=== PATIENT | female | born 1940 | race Two or more races ===

== ENCOUNTER 2018-05-11 19:39 | Inpatient (IN) | payer MEDICARE, BC ==
[~2018-05-11] VITALS: Ht 165.1 cm; Wt 60.8 kg
[2018-05-11] MEDS ORDERED: [UNRECOGNIZED DRUG - CODE] PO (19:57)
[2018-05-11] MEDS ORDERED: [UNRECOGNIZED DRUG - REMARK] (19:57)
[2018-05-11] MEDS ORDERED: MAG HYDROX/AL HYDROX/SIMETH 30 ML LIQUID UDC PO PRN (22:00)
[2018-05-11] MEDS ORDERED: MAGNESIUM HYDROXIDE 30 ML LIQUID UDC PO PRN (22:00)
[2018-05-11] MEDS ORDERED: LORAZEPAM 0.5 MG TABLET PO PRN (22:00)
[2018-05-11] MEDS ORDERED: ACETAMINOPHEN 325 MG TABLET PO PRN (22:00)
[2018-05-11 22:37] VITALS: BP 138/70
[2018-05-12 07:53] VITALS: BP 124/56
[2018-05-12 16:48] VITALS: BP 145/79
[2018-05-12] MEDS: TEMAZEPAM 7.5 MG CAPSULE PO PRN (20:48)
[2018-05-12 22:10] VITALS: BP 142/78
[2018-05-12] MEDS ORDERED: SULFAMETH/TRIMETH 800/160 MG TABLET PO ONE (22:15)
[2018-05-12] MEDS: MIRTAZAPINE 15 MG TABLET PO SCH (22:40)
[2018-05-13 07:02] LABS: BASOPHILS % (AUTO) 0.9 % (0.0-2.0); EOSINOPHILS % (AUTO) 0.8 % (0.0-7.0); HEMATOCRIT 35.2 % (31.2-41.9); HEMOGLOBIN 11.8 g/dL (10.9-14.3); LYMPHOCYTES # (AUTO) 2.9 K/uL (20.0-40.0); LYMPHOCYTES % (AUTO) 59.7 % (20.5-51.5); MEAN CORPUSCULAR HEMOGLOBIN 29.9 uug (24.7-32.8); MEAN CORPUSCULAR HGB CONC 34 g/dL (32.3-35.6); MEAN CORPUSCULAR VOLUME 89.2 fL (75.5-95.3); MONOCYTES # (AUTO) 0.4 K/uL (2.0-10.0); MONOCYTES % (AUTO) 8.4 % (0.0-11.0); NEUTROPHILS # (AUTO) 1.5 K/uL (1.8-8.9); NEUTROPHILS % (AUTO) 30.2 % (38.5-71.5); PLATELET COUNT (AUTO) 100 K/uL (179-408); RED BLOOD CELL COUNT(AUTO) 3.95 MIL/uL (3.63-4.92); WHITE BLOOD COUNT (AUTO) 4.9 K/uL (3.8-11.8)
[2018-05-13 07:25] LABS: THYROID STIMULATING HORMONE 1.964 mIU/mL (0.358-3.740)
[2018-05-13 07:50] LABS: ALANINE AMINOTRANSFERASE < 6 U/L (14-59); ALKALINE PHOSPHATASE 54 U/L (50-136); ASPARTATE AMINOTRANSFERASE 11 U/L (15-37); BILIRUBIN,TOTAL 0.6 mg/dL (0.2-1.0); CARBON DIOXIDE 28 mmol/L (21-32); CHLORIDE 107 mmol/L (98-107); CREATININE 1.3 mg/dL (0.6-1.3); GLUCOSE 75 mg/dL (74-106); MAGNESIUM 2.2 mg/dL (1.8-2.4); PHOSPHOROUS 2.7 mg/dL (2.5-4.9); POTASSIUM 3.5 mmol/L (3.5-5.1); TOTAL PROTEIN, SERUM 5.6 g/dL (6.4-8.2); UREA NITROGEN, BLOOD 21 mg/dL (7-18)
[2018-05-13 08:30] VITALS: BP 133/57
[2018-05-13] MEDS: SULFAMETH/TRIMETH 800/160 MG TABLET PO SCH ×2 (08:56→20:08)
[2018-05-13] MEDS ORDERED: IBRUTINIB 560 MG PO SCH (09:00)
[2018-05-13] MEDS ORDERED: IBRU140T PO (09:13)
[2018-05-13] MEDS: IMBRUVICA 140 MG PO SCH (09:33)
[2018-05-13 15:14] VITALS: BP 119/59
[2018-05-13 20:06] VITALS: BP 152/77
[2018-05-13] MEDS: MIRTAZAPINE 15 MG TABLET PO SCH (20:08)
[2018-05-13] MEDS: TEMAZEPAM 7.5 MG CAPSULE PO PRN (22:06)
[2018-05-14 07:30] VITALS: BP 120/65
[2018-05-14] MEDS: SULFAMETH/TRIMETH 800/160 MG TABLET PO SCH ×2 (08:15→20:09)
[2018-05-14] MEDS: IMBRUVICA 140 MG PO SCH (08:17)
[2018-05-14 15:26] VITALS: BP 147/69
[2018-05-14] MEDS: MIRTAZAPINE 15 MG TABLET PO SCH (20:09)
[2018-05-14] MEDS: TEMAZEPAM 7.5 MG CAPSULE PO PRN (21:45)
[2018-05-14 22:37] VITALS: BP 162/76
[2018-05-15 08:12] VITALS: BP 127/67
[2018-05-15] MEDS: IMBRUVICA 140 MG PO SCH (08:26)
[2018-05-15] MEDS: SULFAMETH/TRIMETH 800/160 MG TABLET PO SCH ×2 (08:26→20:04)
[2018-05-15 15:33] VITALS: BP 128/62
[2018-05-15] MEDS: MIRTAZAPINE 15 MG TABLET PO SCH (19:48)
[2018-05-15 20:00] VITALS: BP 146/73
[2018-05-15] MEDS: TEMAZEPAM 7.5 MG CAPSULE PO PRN (21:56)
[2018-05-16] MEDS: PANTOPRAZOLE SODIUM 40 MG TABLET.DR PO SCH ×2 (06:34→06:51)
[2018-05-16 07:30] VITALS: BP 167/79
[2018-05-16] MEDS: SULFAMETH/TRIMETH 800/160 MG TABLET PO SCH (08:21)
[2018-05-16] MEDS: IMBRUVICA 140 MG PO SCH (08:23)
[2018-05-16] MEDS ORDERED: OMEGA-3 FATTY ACIDS/FISH OIL CAPSULE PO SCH (09:00)
== END 2018-05-16 14:25 | disposition home or self-care (01) | DRG 885 ==
LOC: ER 19:41 → GPS 20:51
PROVIDERS: ADMIT Psychiatry & Neurology Psychosomatic Medicine; ATTEND Internal Medicine
DX: F32.2 Major depressive disorder, single episode, severe without psychotic features (principal); N17.0 Acute kidney failure with tubular necrosis; C91.10 Chronic lymphocytic leukemia of B-cell type not having achieved remission; N39.0 Urinary tract infection, site not specified; J90 Pleural effusion, not elsewhere classified; M80.08XA Age-related osteoporosis with current pathological fracture, vertebra(e), initial encounter for fracture; T40.2X2D Poisoning by other opioids, intentional self-harm, subsequent encounter; Z79.899 Other long term (current) drug therapy; Z88.1 Allergy status to other antibiotic agents; Z91.5 Personal history of self-harm; D69.6 Thrombocytopenia, unspecified; E78.5 Hyperlipidemia, unspecified; N20.0 Calculus of kidney; Z90.710 Acquired absence of both cervix and uterus; E77.8 Other disorders of glycoprotein metabolism; R03.0 Elevated blood-pressure reading, without diagnosis of hypertension; R16.1 Splenomegaly, not elsewhere classified
CPT/HCPCS: 36415; 83735; 84100; 84443; 85025; A4663

== ENCOUNTER 2022-03-12 18:39 | Inpatient (IN) | payer BC, MEDICARE ==
[~2022-03-12] VITALS: Ht 162.6 cm; Wt 49.0 kg
[~2022-03-12 18:39] MED LIST: IBRU140T PO; [UNRECOGNIZED DRUG - REMARK]
--- NOTE | 2022-03-12 19:30 | NUR ---
Recieved report from VALENCIA Mckeon.
--- NOTE | 2022-03-12 19:30 | NUR ---
Dr. Guthrie at bedside. MSE in progress.
[2022-03-12 20:11] LABS: *BILIRUBIN,URIN NEGATIVE (NEGATIVE); *CLARITY,URINE CLEAR (CLEAR); *COLOR,URINE YELLOW (YELLOW); *KETONES,URINE NEGATIVE (NEGATIVE); *UROBILINOGEN,URINE 0.2 E.U./dl (NORMAL); LEUKOCYTE ESTERASE ,URINE TRACE (NEGATIVE); NITRITE, URINE NEGATIVE (NEGATIVE); UGLUCOSE NEGATIVE (NEGATIVE)
[2022-03-12 20:15] LABS: *BLOOD, URINE TRACE (NEGATIVE)
--- NOTE | 2022-03-12 20:46 | NUR ---
Pt medically cleared by Dr. Guthrie.
--- NOTE | 2022-03-12 20:59 | NUR ---
Report given to VALENCIA Cole.
--- NOTE | 2022-03-12 21:37 | NUR ---
Pt. admitted to [facility], under care of Dr. Mckeon/Dr. Tyson Belongs List completed Kelsey RN aware of patient's arrival to unit.
--- NOTE | 2022-03-12 21:45 | NUR ---
Admission note: Patient is a 81 year old female , brought to [facility] by ambulance from [facility] on a 5150 for DTS. Per the hold, the patient verbalized suicidal ideation to her primary care physician by overdosing on pills. The patient stated " I have no , no house, no money. I am going to be homeless in 3 days". Upon face to face evaluation, this patient denied ever saying that she was suicidal. When the hold was read the patient denied and minimized the information that written. Her mood was angry and sarcastic. Plus the patient is forgetful and is a poor historian. She gets irritated easily , is impatient and acts initialed. The patients son was notified regarding her admission and currently he is living in his van. This patient has had a previous SA three years ago. The records show that the patient has Chronic Leukocytosis Leukemia , anemia, depression, CKD, and skin cancer. A Patients Rights Handbook and The Patient Advisement was provided. This ghost writer oriented the patient to the unit and the plan of care. Safety Stratiges are in place at this time.
[2022-03-12 22:07] VITALS: BP 93/51
[2022-03-12] MEDS ORDERED: MAG HYDROX/AL HYDROX/SIMETH 30 ML LIQUID UDC PO PRN (22:30)
[2022-03-12] MEDS ORDERED: BLOOD SUGAR DIAGNOSTIC 1 EACH STRIP VI ONE (22:30)
[2022-03-12] MEDS ORDERED: MAGNESIUM HYDROXIDE 30 ML LIQUID UDC PO PRN (22:30)
[2022-03-12 23:06] LABS: BACTERIA,URINE FEW /HPF (NONE SEEN); SQUAMOUS EPITHELIAL CELL,UR FEW /HPF (NONE SEEN)
[2022-03-12] MEDS: TEMAZEPAM 7.5 MG CAPSULE PO PRN (23:07)
[2022-03-12] MEDS: ACETAMINOPHEN 325 MG TABLET PO PRN (23:25)
[2022-03-13] MEDS: ACETAMINOPHEN 325 MG TABLET PO PRN ×2 (04:39→09:32)
[2022-03-13 07:55] VITALS: BP 101/45
[2022-03-13] MEDS: CEphaleXIN 500 MG CAPSULE PO SCH ×2 (14:35→22:09)
--- NOTE | 2022-03-13 15:02 | NUR ---
received patient in her room alert and oriented x3, patient compliant with medication c/o back pain Tylenol 650 mg given as ordered.patient is guarded flat effect ,denies any suicidal ideation .refused to attend in group activity .will continue close monitoring.
[2022-03-13 15:29] VITALS: BP 102/47
[2022-03-13 16:12] LABS: HEMATOCRIT 23.4 % (31.2-41.9); MEAN CORPUSCULAR HEMOGLOBIN 32.2 uug (24.7-32.8); MEAN CORPUSCULAR VOLUME 99.5 fL (75.5-95.3); PLATELET COUNT (AUTO) 59 K/uL (179-408)
[2022-03-13 16:24] LABS: ALANINE AMINOTRANSFERASE 13 U/L (14-59); ALKALINE PHOSPHATASE 50 U/L (50-136); ASPARTATE AMINOTRANSFERASE 16 U/L (15-37); BILIRUBIN,TOTAL 0.4 mg/dL (0.2-1.0); CARBON DIOXIDE 23 mmol/L (21-32); CHLORIDE 105 mmol/L (98-107); CREATININE 1.7 mg/dL (0.6-1.3); GLUCOSE 81 mg/dL (74-106); LACTATE DEHYDROGENASE 207 U/L (81-234); POTASSIUM 4.9 mmol/L (3.5-5.1); TOTAL PROTEIN, SERUM 5.7 g/dL (6.4-8.2); UREA NITROGEN, BLOOD 33 mg/dL (7-18)
--- NOTE | 2022-03-13 18:00 | NUR ---
Gps/Bank Representative- Received report from Marisela ANTONY RN..
[2022-03-13 18:29] LABS: LYMPHOCYTES % (MANUAL) 86 % (20-40); MONOCYTES % (MANUAL) 2 % (2-10); NEUTROPHILS % (MANUAL) 12 % (42-75)
--- NOTE | 2022-03-13 19:05 | NUR ---
Gps/Lobsterman- Received patient from ER via wheel chair, alert, oriented x 3, In no sign of any distress, complained of headache pain level 7/10. Requesting to take her to her room, refused to answer questions at this time.
[2022-03-13 19:51] VITALS: BP 101/50
[2022-03-13] MEDS: MIRTAZAPINE 15 MG TABLET PO SCH (20:33)
[2022-03-13] MEDS: TEMAZEPAM 7.5 MG CAPSULE PO PRN (20:38)
[2022-03-14] MEDS: CEphaleXIN 500 MG CAPSULE PO SCH (05:38)
[2022-03-14 08:04] LABS: ALKALINE PHOSPHATASE 54 U/L (50-136); BILIRUBIN,TOTAL 0.4 mg/dL (0.2-1.0); CARBON DIOXIDE 23 mmol/L (21-32); CHLORIDE 107 mmol/L (98-107); CREATINE KINASE, TOTAL 9 U/L (26-192); CREATININE 1.7 mg/dL (0.6-1.3); GLUCOSE 85 mg/dL (74-106); MAGNESIUM 2.2 mg/dL (1.8-2.4); PHOSPHOROUS 3.1 mg/dL (2.5-4.9); POTASSIUM 4.8 mmol/L (3.5-5.1); TOTAL PROTEIN, SERUM 5.3 g/dL (6.4-8.2); UREA NITROGEN, BLOOD 33 mg/dL (7-18)
[2022-03-14 08:10] LABS: IRON, SERUM 36 ug/dL (50-175); THYROID STIMULATING HORMONE 5.654 mIU/mL (0.358-3.740)
[2022-03-14 08:13] VITALS: BP 110/57
[2022-03-14 09:06] LABS: HEMATOCRIT 22.9 % (31.2-41.9); MEAN CORPUSCULAR HEMOGLOBIN 32.1 uug (24.7-32.8); MEAN CORPUSCULAR VOLUME 98.2 fL (75.5-95.3); PLATELET COUNT (AUTO) 59 K/uL (179-408)
[2022-03-14 09:13] LABS: ALANINE AMINOTRANSFERASE 12 U/L (14-59); ASPARTATE AMINOTRANSFERASE 13 U/L (15-37); FERRITIN 86 ng/mL (8-252)
--- NOTE | 2022-03-14 10:00 | NUR ---
Spoke with patient's son Olu Long @[phone] regarding primary oncology office for his mom , per Olu he dose not know.spoke with Lisa unable to obtain medical records.
[2022-03-14] MEDS: ACETAMINOPHEN 325 MG TABLET PO PRN (10:07)
--- NOTE | 2022-03-14 10:09 | NUR ---
WOUND CARE CONSULT: PT PRESENTS WITH LESION TO LEFT UPPER THIGH, PRESENT ON ADMISSION. WILL REQUEST SURGICAL CONSULT FROM DR MONK. RECOMMENDATIONS MADE FOR WOUND CARE/SKIN PROTECTION. DISCUSSED WITH NURSING STAFF. MD IN AGREEMENT WITH PLAN OF CARE.
[2022-03-14] MEDS: CEphaleXIN 250 MG CAPSULE PO SCH ×2 (14:19→21:30)
--- NOTE | 2022-03-14 15:27 | NUR ---
SW Initial Discharge Note: Pt was brought from [facility]. Pt's last [address] is listed as [address] Pt stated she is in between her motor home and facilities. Pt asked SW for help with placement. This SW spoke with pt's son, Olu [phone] who is agreeable for pt to discharge to a alf facility upon discharge. Olu stated he is the only family the pt has and he is available for emotional support. CARTER will continue to work with pt, family and MD to ensure a safe and proper discharge plan for the pt.
--- NOTE | 2022-03-14 15:28 | NUR ---
SW Family Contact: This SW spoke to pt's son, Olu ([phone]) who stated that he can be emotionally involved and provide certain items the pt may need brought to her. Olu stated pt is otherwise independent. Olu stated he is the only family the pt has. Olu is agreeable to a facility for the pt upon discharge.
--- NOTE | 2022-03-14 15:30 | NUR ---
Firearms Report: Director Of Dementia Operations completed and submitted a [employer] firearms report for 5150 a danger to self. A copy of report has been placed in patient chart.
[2022-03-14 15:58] VITALS: BP 112/52
[2022-03-14 19:32] VITALS: BP 112/52
[2022-03-14] MEDS: MIRTAZAPINE 15 MG TABLET PO SCH (20:33)
--- NOTE | 2022-03-14 21:00 | NUR ---
GPS: Received patient lying in her room. patient is alert and oriented x3, ambulates with steady gait. patient. patient is isolative guarded flat effect ,Denies any suicidal ideation at this time . assisted with adl's.will continue close monitoring.
[2022-03-14] MEDS: TEMAZEPAM 7.5 MG CAPSULE PO PRN (21:30)
[2022-03-15 03:55] LABS: LYMPHOCYTES % (MANUAL) 61 % (20-40); MONOCYTES % (MANUAL) 8 % (2-10); NEUTROPHILS % (MANUAL) 31 % (42-75)
[2022-03-15] MEDS: CEphaleXIN 250 MG CAPSULE PO SCH ×3 (05:54→21:38)
--- NOTE | 2022-03-15 06:17 | NUR ---
GPS: REMAIN CALM AND COOPERATIVE. SLEPT 7.30 HRS THROUGH THE NIGHT AFTER RESTORIL GIVEN. NO AGITATION NOTED AT THIS TIME. RESTING IN BED COMFORTABLY. CONTINUE PLAN OF CARE.
[2022-03-15 07:34] VITALS: BP 109/53
[2022-03-15 08:21] LABS: HEMATOCRIT 22.9 % (31.2-41.9); MEAN CORPUSCULAR HEMOGLOBIN 32.2 uug (24.7-32.8); MEAN CORPUSCULAR VOLUME 97.9 fL (75.5-95.3); PLATELET COUNT (AUTO) 61 K/uL (179-408)
[2022-03-15 08:27] LABS: CARBON DIOXIDE 25 mmol/L (21-32); CHLORIDE 107 mmol/L (98-107); CREATININE 1.8 mg/dL (0.6-1.3); GLUCOSE 86 mg/dL (74-106); POTASSIUM 4.8 mmol/L (3.5-5.1); UREA NITROGEN, BLOOD 33 mg/dL (7-18)
[2022-03-15 10:43] LABS: *RHEUMATOID FACTOR SCREEN NEGATIVE (NEGATIVE)
[2022-03-15 11:22] LABS: BAND % (MANUAL) 1 % (0-10); LYMPHOCYTES % (MANUAL) 77 % (20-40); MONOCYTES % (MANUAL) 7 % (2-10); NEUTROPHILS % (MANUAL) 15 % (42-75)
[2022-03-15 12:07] LABS: A/G RATIO 1.3 (0.7-1.7); ALPHA-1-GLOBULIN 0.2 g/dL (0.0-0.4); ALPHA-2-GLOBULIN 0.7 g/dL (0.4-1.0); BETA GLOBULIN 0.9 g/dL (0.7-1.3); GAMMA GLOBULIN 0.5 g/dL (0.4-1.8); GLOBULIN, TOTAL 2.3 g/dL (2.2-3.9); M-SPIKE Not Observed g/dL (Not Observed)
[2022-03-15] MEDS: ACETAMINOPHEN 325 MG TABLET PO PRN (13:42)
--- NOTE | 2022-03-15 14:00 | NUR ---
Received patient sleeping in her room. Patient is A/O X 3 to person, place. Patient is withdrawn, isolative, depressed, cooperative with nursing care, and compliant with medications. Tylenol 650 mg given at 13:42 for headache, effective. Patient presents left thigh scabbed wound and left big toe bruise. Patient has history of skin cancer. Patient primary oncology doctor is Dr. Landin at [facility]. Patient cancer medication Ibrutinib was left in [facility] in [facility]. This designer writer will try to contact the facility to send her medication, since this hospital does not carry it. Patient requires minimal assistance with ADL. Emotional support provided. Fall and safety precautions implemented.
--- NOTE | 2022-03-15 16:19 | NUR ---
This typewriter assembler called patient primary oncology Dr. Daniel Corbni MD, B[facility] office from [facility] at [phone] to request medical records on this patient. This typewriter assembler talked to Lisa, secretary specialist from his office, and she will send a fax to this unit on Dr. Mike burnham in the next two days.
[2022-03-15 16:31] VITALS: BP 109/48
[2022-03-15 19:46] VITALS: BP 101/50
[2022-03-15] MEDS: MIRTAZAPINE 15 MG TABLET PO SCH (20:13)
[2022-03-15 20:24] LABS: BILIRUBIN,DIRECT 0.1 mg/dL (0.0-0.2); BILIRUBIN,TOTAL 0.3 mg/dL (0.2-1.0); TOTAL PROTEIN, SERUM 5.6 g/dL (6.4-8.2)
--- NOTE | 2022-03-15 20:33 | NUR ---
GPS: Received patient lying in her room. patient is alert and oriented x3, ambulates with steady gait. patient is quiet and isolative. Denies any suicidal ideation at this time . compliant with meds. encourage po intake due to patient is atb for uti. assisted with adl's.will continue close monitoring.
[2022-03-15] MEDS: TEMAZEPAM 7.5 MG CAPSULE PO PRN (21:38)
[2022-03-16] MEDS: CEphaleXIN 250 MG CAPSULE PO SCH ×3 (05:57→21:07)
--- NOTE | 2022-03-16 06:08 | NUR ---
GPS: REMAIN CALM AND COOPERATIVE. SLEPT 6 HRS THROUGH THE NIGHT AFTER RESTORIL GIVEN. NO AGITATION NOTED AT THIS TIME. RESTING IN BED COMFORTABLY. CONTINUE PLAN OF CARE.
[2022-03-16 07:37] LABS: HEMATOCRIT 22.1 % (31.2-41.9); MEAN CORPUSCULAR HEMOGLOBIN 32.2 uug (24.7-32.8); MEAN CORPUSCULAR VOLUME 98.2 fL (75.5-95.3); PLATELET COUNT (AUTO) 61 K/uL (179-408)
[2022-03-16 07:42] VITALS: BP 119/46
[2022-03-16 07:44] LABS: CARBON DIOXIDE 26 mmol/L (21-32); CHLORIDE 107 mmol/L (98-107); CREATININE 1.8 mg/dL (0.6-1.3); GLUCOSE 88 mg/dL (74-106); POTASSIUM 4.9 mmol/L (3.5-5.1); UREA NITROGEN, BLOOD 33 mg/dL (7-18)
--- NOTE | 2022-03-16 08:29 | NUR ---
Patient hemoglobin is 7.2, Elevator Constructor was informed.
[2022-03-16] MEDS: ACETAMINOPHEN 325 MG TABLET PO PRN (08:36)
[2022-03-16 09:07] LABS: *IMMUNOGLOBULIN G, SERUM 376 mg/dL (586-1602); IMMUNOGLOBULIN M, SERUM 20 mg/dL (26-217)
[2022-03-16 12:07] LABS: *ANTI-SCLERODERMA-70 AB <0.2 AI (0.0-0.9); *SJOGREN'S ANTI-SS-A <0.2 AI (0.0-0.9); *SJOGREN'S ANTI-SS-B <0.2 AI (0.0-0.9); *SMITH ANTIBODIES <0.2 AI (0.0-0.9); ANTI-DNA(DS) AB, QN <1 IU/mL (0-9)
[2022-03-16] MEDS: FERROUS SULFATE 325 MG TABEC PO SCH ×2 (13:05→20:18)
[2022-03-16 13:59] LABS: MONOCYTES % (MANUAL) 6 % (2-10)
[2022-03-16 14:00] LABS: LYMPHOCYTES % (MANUAL) 75 % (20-40); NEUTROPHILS % (MANUAL) 19 % (42-75)
--- NOTE | 2022-03-16 15:03 | NUR ---
Patient is depressed, withdrawn, isolative, compliant with medications, low energy, not engaged in conversations or activities. A/O X 3 to person, place. Patient is encourage to verbalize concerns. Fall and safety precautions implemented.
[2022-03-16 16:00] VITALS: BP 113/53
[2022-03-16 20:08] VITALS: BP 109/58
[2022-03-16] MEDS: MIRTAZAPINE 15 MG TABLET PO SCH (20:19)
[2022-03-16] MEDS: TEMAZEPAM 7.5 MG CAPSULE PO PRN (21:23)
[2022-03-17 03:06] LABS: HEPATITIS B SURFACE AG Negative (Negative)
[2022-03-17] MEDS: CEphaleXIN 250 MG CAPSULE PO SCH ×3 (06:17→21:23)
[2022-03-17 07:30] VITALS: BP 104/54
[2022-03-17] MEDS: FERROUS SULFATE 325 MG TABEC PO SCH ×2 (08:08→20:06)
[2022-03-17] MEDS: ACETAMINOPHEN 325 MG TABLET PO PRN (08:08)
[2022-03-17 08:27] LABS: PLATELET COUNT (AUTO) 61 K/uL (179-408)
[2022-03-17 08:29] LABS: MEAN CORPUSCULAR HEMOGLOBIN 32.9 uug (24.7-32.8)
[2022-03-17 09:14] LABS: CARBON DIOXIDE 26 mmol/L (21-32); CHLORIDE 107 mmol/L (98-107); CREATININE 1.9 mg/dL (0.6-1.3); GLUCOSE 86 mg/dL (74-106); POTASSIUM 4.7 mmol/L (3.5-5.1); UREA NITROGEN, BLOOD 36 mg/dL (7-18)
[2022-03-17 10:07] LABS: A/G RATIO 1.3 (0.7-1.7); ALPHA-1-GLOBULIN 0.3 g/dL (0.0-0.4); ALPHA-2-GLOBULIN 0.7 g/dL (0.4-1.0); BETA GLOBULIN 0.9 g/dL (0.7-1.3); GAMMA GLOBULIN 0.5 g/dL (0.4-1.8); GLOBULIN, TOTAL 2.4 g/dL (2.2-3.9); M-SPIKE Not Observed g/dL (Not Observed)
--- NOTE | 2022-03-17 14:13 | NUR ---
Patient had court hearing today, administration intern gave 14 Day hold probable cause for GD and DTS.
--- NOTE | 2022-03-17 14:49 | NUR ---
Received patient sleeping in her room. Patient is A/O X 3 to person, place. Patient is quiet, withdrawn, isolative, compliant with medications. Patient denies suicidal ideations. Patient hemoglobin increased from 7.12 yesterday to 7.15 this morning, Tool Maker Bench aware of it. Patient primary oncologist progress notes in the chart. Patient has multiple bruises on her upper and lower extremities including her face because of skin cancer. Requires minimal assistance with ADL. Emotional support provided. Fall and safety precautions implemented.
[2022-03-17 16:00] VITALS: BP 106/51
[2022-03-17] MEDS: MIRTAZAPINE 15 MG TABLET PO SCH (20:06)
[2022-03-17 20:07] VITALS: BP 126/54
[2022-03-17] MEDS: TEMAZEPAM 7.5 MG CAPSULE PO PRN (21:23)
[2022-03-18] MEDS: CEphaleXIN 250 MG CAPSULE PO SCH ×3 (06:40→21:17)
[2022-03-18 07:30] VITALS: BP 107/51
[2022-03-18 08:02] LABS: ALANINE AMINOTRANSFERASE 10 U/L (14-59); ALKALINE PHOSPHATASE 62 U/L (50-136); ASPARTATE AMINOTRANSFERASE 21 U/L (15-37); BILIRUBIN,TOTAL 0.4 mg/dL (0.2-1.0); CARBON DIOXIDE 25 mmol/L (21-32); CHLORIDE 107 mmol/L (98-107); GLUCOSE 89 mg/dL (74-106); MAGNESIUM 2.2 mg/dL (1.8-2.4); PHOSPHOROUS 3.4 mg/dL (2.5-4.9); POTASSIUM 4.6 mmol/L (3.5-5.1); TOTAL PROTEIN, SERUM 5.6 g/dL (6.4-8.2); UREA NITROGEN, BLOOD 33 mg/dL (7-18)
[2022-03-18 08:13] LABS: HEMATOCRIT 22.1 % (31.2-41.9); MEAN CORPUSCULAR HEMOGLOBIN 32.9 uug (24.7-32.8); MEAN CORPUSCULAR VOLUME 96.8 fL (75.5-95.3); PLATELET COUNT (AUTO) 60 K/uL (179-408)
[2022-03-18] MEDS: FERROUS SULFATE 325 MG TABEC PO SCH ×2 (08:33→20:06)
[2022-03-18] MEDS: ENSURE ENLIVE (VAN) 240 ML LIQUID PO SCH ×2 (11:45→17:39)
--- NOTE | 2022-03-18 14:13 | NUR ---
attempted to call patient's son Olu @[phone] to bring her Chemo med.Ibrutinib from her A/L facility , unable to contact Olu,will endorse next shift.
[2022-03-18 16:00] VITALS: BP 116/57
[2022-03-18 19:41] VITALS: BP 115/53
[2022-03-18] MEDS: MIRTAZAPINE 15 MG TABLET PO SCH (20:06)
--- NOTE | 2022-03-18 20:35 | NUR ---
GPS: Remains withdrawn and isolative. Denies SI. Encouraged to attend activities during the day. Safe environment provided. Fluids taken adequately.
[2022-03-18] MEDS: TEMAZEPAM 7.5 MG CAPSULE PO PRN (21:17)
[2022-03-18 22:56] LABS: EOSINOPHILS % (MANUAL) 2 % (0-8); LYMPHOCYTES % (MANUAL) 76 % (20-40); MONOCYTES % (MANUAL) 7 % (2-10); NEUTROPHILS % (MANUAL) 15 % (42-75)
[2022-03-19] MEDS: CEphaleXIN 250 MG CAPSULE PO SCH (06:19)
[2022-03-19 07:42] VITALS: BP 121/62
[2022-03-19 08:30] LABS: HEMATOCRIT 23.2 % (31.2-41.9); MEAN CORPUSCULAR HEMOGLOBIN 31.3 uug (24.7-32.8); MEAN CORPUSCULAR VOLUME 97.3 fL (75.5-95.3); PLATELET COUNT (AUTO) 65 K/uL (179-408)
[2022-03-19 08:44] LABS: ALANINE AMINOTRANSFERASE 10 U/L (14-59); ALKALINE PHOSPHATASE 66 U/L (50-136); ASPARTATE AMINOTRANSFERASE 19 U/L (15-37); BILIRUBIN,TOTAL 0.3 mg/dL (0.2-1.0); CARBON DIOXIDE 25 mmol/L (21-32); CHLORIDE 108 mmol/L (98-107); CREATININE 1.9 mg/dL (0.6-1.3); GLUCOSE 90 mg/dL (74-106); MAGNESIUM 2.4 mg/dL (1.8-2.4); PHOSPHOROUS 3.6 mg/dL (2.5-4.9); POTASSIUM 4.8 mmol/L (3.5-5.1); TOTAL PROTEIN, SERUM 5.6 g/dL (6.4-8.2); UREA NITROGEN, BLOOD 40 mg/dL (7-18)
[2022-03-19] MEDS: FERROUS SULFATE 325 MG TABEC PO SCH ×2 (08:57→20:25)
[2022-03-19] MEDS: ENSURE ENLIVE (VAN) 240 ML LIQUID PO SCH (08:59)
--- NOTE | 2022-03-19 15:44 | NUR ---
GPS: Nursing Notes: Destructive Behavior To Self: Patient is awake and responding to her name, isolative and withdrawn in her room, no interactions with peers, low energy level, depressed mood and blunted affect, unable to formulate a viable plan for self care, needs a lot of prompting to participate in therapeutic groups, continue to monitor for safety, continue with treatment plan.
[2022-03-19 16:16] VITALS: BP 99/47
[2022-03-19 19:53] VITALS: BP 112/54
[2022-03-19] MEDS: MIRTAZAPINE 15 MG TABLET PO SCH (20:25)
[2022-03-19] MEDS: TEMAZEPAM 7.5 MG CAPSULE PO PRN (23:39)
[2022-03-20 07:50] VITALS: BP 103/52
[2022-03-20] MEDS: FERROUS SULFATE 325 MG TABEC PO SCH ×2 (08:50→20:32)
--- NOTE | 2022-03-20 13:36 | NUR ---
GPS: Nursing Notes: Destructive Behavior To Self: Patient is awake and responding to her name, impaired judgment, depressed mood and angry affect, isolative and withdrawn in her room, refusing to participate in therapeutic groups, low energy level, no interactions with peers, unable to formulate a viable plan for self care, continue to monitor for safety, continue with treatment plan.
[2022-03-20 16:30] VITALS: BP 110/53
--- NOTE | 2022-03-20 18:23 | NUR ---
GPS: Nursing Notes: Chemo-Medication: Staff tried to get in touch with patient's son Olu in order to bring chemo-medication: Ibrutinib per Kayden Bradshaw request, but staff left a voice message to call unit because her son will not answer the phone call, continue with treatment plan.
[2022-03-20 19:48] VITALS: BP 112/50
[2022-03-20] MEDS: MIRTAZAPINE 15 MG TABLET PO SCH (20:32)
[2022-03-20] MEDS: CLONAZEPAM 0.5 MG TABLET PO PRN (20:32)
[2022-03-20] MEDS: TEMAZEPAM 7.5 MG CAPSULE PO PRN (22:43)
[2022-03-21 06:48] LABS: HEMATOCRIT 23.5 % (31.2-41.9); MEAN CORPUSCULAR HEMOGLOBIN 31.7 uug (24.7-32.8); MEAN CORPUSCULAR VOLUME 97.1 fL (75.5-95.3); PLATELET COUNT (AUTO) 67 K/uL (179-408)
[2022-03-21 07:38] VITALS: BP 107/62
[2022-03-21 07:45] LABS: CARBON DIOXIDE 26 mmol/L (21-32); CHLORIDE 107 mmol/L (98-107); CREATININE 1.9 mg/dL (0.6-1.3); GLUCOSE 90 mg/dL (74-106); POTASSIUM 4.8 mmol/L (3.5-5.1); UREA NITROGEN, BLOOD 40 mg/dL (7-18)
[2022-03-21] MEDS: FERROUS SULFATE 325 MG TABEC PO SCH ×2 (09:09→21:02)
--- NOTE | 2022-03-21 13:03 | NUR ---
GPS: Nursing Notes: Chemo-Medication: Staff tried to get in touch with patient's son Olu in order to bring chemo-medication: Ibrutinib per Kayden Bradshaw request, but staff left a voice message to call unit, continue with treatment plan.
--- NOTE | 2022-03-21 14:00 | NUR ---
GPS: Nursing Notes: Destructive Behavior To Self: Patient is awake and responding to her name, isolative and withdrawn in her room, depressed mood and angry affect, gets easily irritable when redirected, low energy level, unable to formulate a viable plan for self care, unkempt appearance, refusing to participate in therapeutic groups, continue to monitor for safety, continue with treatment plan.
[2022-03-21 16:23] VITALS: BP 101/49
[2022-03-21 19:33] VITALS: BP 104/56
[2022-03-21] MEDS: CLONAZEPAM 0.5 MG TABLET PO PRN (21:02)
[2022-03-21] MEDS: MIRTAZAPINE 15 MG TABLET PO SCH (21:02)
[2022-03-22 07:30] VITALS: BP 110/55
[2022-03-22 07:32] LABS: CREATINE KINASE, TOTAL 8 U/L (26-192)
[2022-03-22 07:43] LABS: ALANINE AMINOTRANSFERASE 15 U/L (14-59); ALKALINE PHOSPHATASE 68 U/L (50-136); ASPARTATE AMINOTRANSFERASE 19 U/L (15-37); BILIRUBIN,TOTAL 0.3 mg/dL (0.2-1.0); CARBON DIOXIDE 25 mmol/L (21-32); CHLORIDE 106 mmol/L (98-107); GLUCOSE 89 mg/dL (74-106); MAGNESIUM 2.3 mg/dL (1.8-2.4); PHOSPHOROUS 3.5 mg/dL (2.5-4.9); POTASSIUM 4.8 mmol/L (3.5-5.1); TOTAL PROTEIN, SERUM 5.7 g/dL (6.4-8.2); UREA NITROGEN, BLOOD 40 mg/dL (7-18)
[2022-03-22 08:00] LABS: HEMATOCRIT 22.9 % (31.2-41.9); MEAN CORPUSCULAR HEMOGLOBIN 32.7 uug (24.7-32.8); MEAN CORPUSCULAR VOLUME 96.9 fL (75.5-95.3); PLATELET COUNT (AUTO) 65 K/uL (179-408)
[2022-03-22] MEDS: FERROUS SULFATE 325 MG TABEC PO SCH ×2 (09:01→20:24)
--- NOTE | 2022-03-22 09:40 | NUR ---
SNF Referral: SW faxed patient's referral packet including: History and Physical, Consultation, Progress Notes, Medication List and Labs to the following facilities for review and possible [place] [facility] [place]: [place] [address] ([phone]) and spoke with Rona rm ([phone]).
[2022-03-22 10:38] LABS: LYMPHOCYTES % (MANUAL) 79 % (20-40); MONOCYTES % (MANUAL) 2 % (2-10); NEUTROPHILS % (MANUAL) 19 % (42-75)
--- NOTE | 2022-03-22 14:58 | NUR ---
GPS: Nursing Notes: Destructive Behavior To Self: Patient is awake and responding to her name, isolative and withdrawn in her room, no interactions with peers, unable to formulate a viable plan for self care, depressed mood and withdrawn affect, gets easily irritable when redirected, continue to monitor for safety, unkempt appearance, compliant with her medications, continue with treatment plan.
[2022-03-22 16:00] VITALS: BP 109/56
[2022-03-22 19:40] VITALS: BP 106/54
[2022-03-22] MEDS: MIRTAZAPINE 15 MG TABLET PO SCH (20:24)
[2022-03-22] MEDS: TEMAZEPAM 7.5 MG CAPSULE PO PRN (20:55)
--- NOTE | 2022-03-23 05:50 | NUR ---
Slept for 6.30 hours. No distress noted. Took all medications. Safety maintained. Will endorse to day shift.
[2022-03-23 07:30] VITALS: BP 105/53
[2022-03-23] MEDS: FERROUS SULFATE 325 MG TABEC PO SCH (09:10)
--- NOTE | 2022-03-23 09:18 | NUR ---
CARTER Discharge Note: Pt will be discharged to [facility] located at [address] [place] [address] ([phone]) via Ambulance transportation at 11AM. CARTER spoke with admin coordinator, Rona ([phone]) at the facility who states they are ready to accept the patient today. Pt is aware and agreeable with discharge plan. CARTER left a voicemail for pts son, Olu ([phone]) regarding pts discharge details. Olu was previously agreeable to MDs recommended facility for continuation of care. Pt is alert and oriented x4, is unable to plan for self-care at this time. However, pt is willing to accept care at SNF. Pt denies any suicidal or homicidal ideation. Pt will follow-up at the facility with Psychiatrist, Dr. Mckeon ([phone]) and Glass Breaker, Dr. Martinez. Pt presents with calm mood and congruent affect. PHARMACY: [facility] ([phone]) [address] [id number].
--- NOTE | 2022-03-23 14:44 | NUR ---
Pt is being discharged to [facility] via ambulance. VS are stable. Discharge instructions are provided. All belongings returned. Report was given to VALENCIA Simental at the facility.
[2022-03-23 15:06] LABS: A/G RATIO 1.2 (0.7-1.7); ALBUMIN 2.9 g/dL (2.9-4.4); ALPHA-1-GLOBULIN 0.2 g/dL (0.0-0.4); ALPHA-2-GLOBULIN 0.7 g/dL (0.4-1.0); GAMMA GLOBULIN 0.5 g/dL (0.4-1.8); GLOBULIN, TOTAL 2.4 g/dL (2.2-3.9); M-SPIKE Not Observed g/dL (Not Observed)
== END 2022-03-23 14:47 | DRG 885 ==
LOC: ER 18:41 → GPS 21:08
PROVIDERS: ADMIT Nurse Practitioner Psychiatric/Mental Health; ATTEND Nurse Practitioner Family
DX: F32.2 Major depressive disorder, single episode, severe without psychotic features (principal); N17.9 Acute kidney failure, unspecified; N18.31 Chronic kidney disease, stage 3a; R45.851 Suicidal ideations; C91.10 Chronic lymphocytic leukemia of B-cell type not having achieved remission; N39.0 Urinary tract infection, site not specified; E44.1 Mild protein-calorie malnutrition; Z68.1 Body mass index [BMI] 19.9 or less, adult; D63.0 Anemia in neoplastic disease; D69.6 Thrombocytopenia, unspecified; E88.9 Metabolic disorder, unspecified; Z82.5 Family history of asthma and other chronic lower respiratory diseases; Z83.3 Family history of diabetes mellitus; Z91.51 Personal history of suicidal behavior; G62.9 Polyneuropathy, unspecified; Z20.822 Contact with and (suspected) exposure to COVID-19; E83.9 Disorder of mineral metabolism, unspecified; M89.9 Disorder of bone, unspecified; F29 Unspecified psychosis not due to a substance or known physiological condition; Z79.899 Other long term (current) drug therapy; E88.09 Other disorders of plasma-protein metabolism, not elsewhere classified
CPT/HCPCS: 36415; 70030-TC; 76770; 82746; 82747; 82784; 83010; 83550; 83615; 83735; 83970; 84100; 84155; 84165; 84443; 85014; 85025; 86038; 86140; 86334; 86430; 86706; 86803; 86880; 87340; A6209

== ENCOUNTER 2022-06-21 11:20 | Inpatient (IN) | payer MEDICARE ==
[~2022-06-21] VITALS: Ht 162.6 cm; Wt 54.4 kg
[2022-06-21] VITALS (8 sets, daily range): BP systolic 99–126; BP diastolic 49–60
[~2022-06-21 11:20] MED LIST changes: -[UNRECOGNIZED DRUG - REMARK]
[2022-06-21] MEDS ORDERED: CHOL10005 PO (11:51)
[2022-06-21] MEDS ORDERED: LOPE-197 PO (11:51)
[2022-06-21] MEDS ORDERED: ACET-2154 PO (11:51)
[2022-06-21] MEDS ORDERED: MULT-365 PO (11:51)
[2022-06-21] MEDS ORDERED: FERR325T28 PO (11:51)
[2022-06-21] MEDS ORDERED: MIRT-94 PO (11:51)
[2022-06-21 12:02] LABS: MEAN CORPUSCULAR HEMOGLOBIN 31.5 uug (24.7-32.8); MEAN CORPUSCULAR VOLUME 97.3 fL (75.5-95.3)
[2022-06-21 12:14] LABS: CARBON DIOXIDE 25 mmol/L (21-32); CHLORIDE 106 mmol/L (98-107); CREATININE 2.3 mg/dL (0.6-1.3); GLUCOSE 99 mg/dL (74-106); POTASSIUM 4.6 mmol/L (3.5-5.1); UREA NITROGEN, BLOOD 42 mg/dL (7-18)
[2022-06-21 12:16] LABS: HEMATOCRIT 19.8 % (31.2-41.9); PLATELET COUNT (AUTO) 42 K/uL (179-408)
[2022-06-21 12:19] LABS: ALANINE AMINOTRANSFERASE 8 U/L (14-59); ALKALINE PHOSPHATASE 64 U/L (50-136); ASPARTATE AMINOTRANSFERASE 13 U/L (15-37); BILIRUBIN,DIRECT 0.2 mg/dL (0.0-0.2); BILIRUBIN,TOTAL 0.5 mg/dL (0.2-1.0); LIPASE 83 U/L (73-393); TOTAL PROTEIN, SERUM 5.4 g/dL (6.4-8.2)
[2022-06-21] MEDS ORDERED: MORPHINE SULFATE 2 MG/1 ML DISP.SYRIN IV PRN (16:45)
[2022-06-21] MEDS ORDERED: ONDANSETRON 4 MG/2 ML VIAL IV PRN (16:45)
[2022-06-21 17:04] LABS: IRON, SERUM 54 ug/dL (50-175)
[2022-06-21 18:51] LABS: BASOPHILS % (MANUAL) 0 % (0-2); EOSINOPHILS % (MANUAL) 2 % (0-8); LYMPHOCYTES % (MANUAL) 65 % (20-40); MONOCYTES % (MANUAL) 3 % (2-10); NEUTROPHILS % (MANUAL) 30 % (42-75)
[2022-06-21] MEDS: MIRTAZAPINE 15 MG TABLET PO SCH (20:47)
[2022-06-21] MEDS: FERROUS SULFATE 325 MG TABEC PO SCH (20:47)
[2022-06-21] MEDS: IV NS 1000 ML 1,000 ML IV PRN (21:31)
[2022-06-22] VITALS: BP 118/58
[2022-06-22 04:00] VITALS: BP 117/63
[2022-06-22] MEDS: PANTOPRAZOLE SODIUM 40 MG TABLET.DR PO SCH (06:30)
[2022-06-22 07:35] LABS: HEMATOCRIT 21.1 % (31.2-41.9); MEAN CORPUSCULAR HEMOGLOBIN 30.6 uug (24.7-32.8); MEAN CORPUSCULAR VOLUME 92.7 fL (75.5-95.3)
[2022-06-22 07:52] LABS: ALKALINE PHOSPHATASE 58 U/L (50-136); ASPARTATE AMINOTRANSFERASE 17 U/L (15-37); BILIRUBIN,TOTAL 0.5 mg/dL (0.2-1.0); CARBON DIOXIDE 24 mmol/L (21-32); CHLORIDE 110 mmol/L (98-107); CHOLESTEROL 120 mg/dL (<200); CREATININE 2.2 mg/dL (0.6-1.3); GLUCOSE 86 mg/dL (74-106); HDL CHOLESTEROL 22 mg/dL (40-60); MAGNESIUM 2.2 mg/dL (1.8-2.4); POTASSIUM 4.3 mmol/L (3.5-5.1); THYROID STIMULATING HORMONE 6.903 mIU/mL (0.358-3.740); TRIGLYCERIDES 120 MG/DL (30-150); UREA NITROGEN, BLOOD 36 mg/dL (7-18)
[2022-06-22 08:02] VITALS: BP 116/60
[2022-06-22 08:17] LABS: ALANINE AMINOTRANSFERASE 8 U/L (14-59)
[2022-06-22] MEDS: CHOLECALCIFEROL 1,000 UNIT TABLET PO SCH (08:31)
[2022-06-22] MEDS: MULTIVIT, IRON, MIN NO. 8, FA TABLET PO SCH (08:31)
[2022-06-22] MEDS: FERROUS SULFATE 325 MG TABEC PO SCH (08:31)
[2022-06-22 09:38] LABS: *BILIRUBIN,URIN NEGATIVE (NEGATIVE); *CLARITY,URINE CLEAR (CLEAR); *COLOR,URINE YELLOW (YELLOW); *KETONES,URINE NEGATIVE (NEGATIVE); *UROBILINOGEN,URINE 0.2 E.U./dl (NORMAL); LEUKOCYTE ESTERASE ,URINE TRACE (NEGATIVE); NITRITE, URINE NEGATIVE (NEGATIVE); UGLUCOSE NEGATIVE (NEGATIVE)
[2022-06-22 09:40] LABS: *BLOOD, URINE TRACE (NEGATIVE)
[2022-06-22 09:43] LABS: PLATELET COUNT (AUTO) 37 K/uL (179-408)
[2022-06-22] MEDS: IV NS 1000 ML 1,000 ML IV PRN (11:18)
[2022-06-22 12:00] VITALS: BP 103/55
[2022-06-22] MEDS: ACETAMINOPHEN 325 MG TABLET PO PRN (13:17)
[2022-06-22 14:10] LABS: *CREATININE,URINE 106.6 mg/dL (30-125); *URINE TOTAL PROTEIN RANDOM 66.6 mg/dL (<150/24HR)
[2022-06-22 15:02] LABS: BAND % (MANUAL) 0 % (0-10); LYMPHOCYTES % (MANUAL) 74 % (20-40); MONOCYTES % (MANUAL) 3 % (2-10)
[2022-06-22 15:03] LABS: NEUTROPHILS % (MANUAL) 23 % (42-75)
[2022-06-22 15:17] LABS: *OCCULT BLOOD STOOL POSITIVE (NEGATIVE)
[2022-06-22 16:00] VITALS: BP 101/52
[2022-06-22 17:25] LABS: HEMATOCRIT 21.6 % (31.2-41.9)
[2022-06-22 17:49] LABS: FERRITIN 117 ng/mL (8-252); LACTATE DEHYDROGENASE 231 U/L (81-234)
[2022-06-22 18:12] LABS: *RHEUMATOID FACTOR SCREEN NEGATIVE (NEGATIVE)
[2022-06-22 20:00] VITALS: BP 124/58
[2022-06-22] MEDS: MIRTAZAPINE 15 MG TABLET PO SCH (20:31)
[2022-06-22 21:44] LABS: BACTERIA,URINE FEW /HPF (NONE SEEN); SQUAMOUS EPITHELIAL CELL,UR FEW /HPF (NONE SEEN)
[2022-06-23] VITALS (7 sets, daily range): BP systolic 97–109; BP diastolic 43–58
[2022-06-23] MEDS: IV NS 1000 ML 1,000 ML IV PRN ×2 (01:38→19:40)
[2022-06-23] MEDS: PANTOPRAZOLE SODIUM 40 MG TABLET.DR PO SCH (06:35)
[2022-06-23 07:13] LABS: ALKALINE PHOSPHATASE 56 U/L (50-136); ASPARTATE AMINOTRANSFERASE 11 U/L (15-37); BILIRUBIN,DIRECT 0.1 mg/dL (0.0-0.2); BILIRUBIN,TOTAL 0.6 mg/dL (0.2-1.0); CARBON DIOXIDE 24 mmol/L (21-32); CHLORIDE 111 mmol/L (98-107); CREATINE KINASE, TOTAL 8 U/L (26-192); GLUCOSE 89 mg/dL (74-106); MAGNESIUM 2.1 mg/dL (1.8-2.4); PHOSPHOROUS 3.9 mg/dL (2.5-4.9); POTASSIUM 4.3 mmol/L (3.5-5.1); TOTAL PROTEIN, SERUM 4.9 g/dL (6.4-8.2); UREA NITROGEN, BLOOD 37 mg/dL (7-18)
[2022-06-23 08:00] LABS: ALANINE AMINOTRANSFERASE 7 U/L (14-59)
[2022-06-23 08:13] LABS: HEMATOCRIT 21.6 % (31.2-41.9); MEAN CORPUSCULAR HEMOGLOBIN 30.4 uug (24.7-32.8)
[2022-06-23 08:41] LABS: PLATELET COUNT (AUTO) 39 K/uL (179-408)
[2022-06-23] MEDS: MULTIVIT, IRON, MIN NO. 8, FA TABLET PO SCH (09:40)
[2022-06-23] MEDS: CHOLECALCIFEROL 1,000 UNIT TABLET PO SCH (09:40)
[2022-06-23 14:15] LABS: HEMATOCRIT 23.1 % (31.2-41.9)
[2022-06-23] MEDS: GLUCERNA SHAKE 237 ML CAN PO SCH (17:10)
[2022-06-23] MEDS: MIRTAZAPINE 15 MG TABLET PO SCH (20:18)
[2022-06-24 04:30] VITALS: BP 101/52
[2022-06-24] MEDS: PANTOPRAZOLE SODIUM 40 MG TABLET.DR PO SCH (06:18)
[2022-06-24 07:07] LABS: AFP, TUMOR MARKER <1.8 ng/mL (0.0-8.7)
[2022-06-24 07:20] LABS: HEMATOCRIT 21.6 % (31.2-41.9); MEAN CORPUSCULAR HEMOGLOBIN 30.3 uug (24.7-32.8); MEAN CORPUSCULAR VOLUME 93.6 fL (75.5-95.3)
[2022-06-24] MEDS: GLUCERNA SHAKE 237 ML CAN PO SCH ×2 (08:00→16:35)
[2022-06-24 08:05] LABS: PLATELET COUNT (AUTO) 43 K/uL (179-408)
[2022-06-24 08:06] LABS: *IMMUNOGLOBULIN G, SERUM 362 mg/dL (586-1602); HAPTOGLOBIN 138 mg/dL (41-333); HEPATITIS B SURFACE AG Negative (Negative); IMMUNOGLOBULIN M, SERUM 16 mg/dL (26-217)
[2022-06-24 09:06] LABS: *ANTI-SCLERODERMA-70 AB <0.2 AI (0.0-0.9); *SJOGREN'S ANTI-SS-A <0.2 AI (0.0-0.9); *SJOGREN'S ANTI-SS-B <0.2 AI (0.0-0.9); *SMITH ANTIBODIES <0.2 AI (0.0-0.9); ANTI-DNA(DS) AB, QN <1 IU/mL (0-9)
[2022-06-24] MEDS: MULTIVIT, IRON, MIN NO. 8, FA TABLET PO SCH (10:17)
[2022-06-24] MEDS: CHOLECALCIFEROL 1,000 UNIT TABLET PO SCH (10:17)
[2022-06-24] MEDS: IV NS 1000 ML 1,000 ML IV PRN (10:21)
[2022-06-24 11:38] VITALS: BP 100/52
[2022-06-24 14:06] LABS: A/G RATIO 1.1 (0.7-1.7); ALBUMIN 2.4 g/dL (2.9-4.4); ALPHA-1-GLOBULIN 0.3 g/dL (0.0-0.4); ALPHA-2-GLOBULIN 0.6 g/dL (0.4-1.0); GAMMA GLOBULIN 0.3 g/dL (0.4-1.8); GLOBULIN, TOTAL 2.2 g/dL (2.2-3.9); M-SPIKE 0.1 g/dL (Not Observed)
[2022-06-24 14:06] LABS: A/G RATIO 1.4 (0.7-1.7); ALBUMIN 2.8 g/dL (2.9-4.4); ALPHA-1-GLOBULIN 0.2 g/dL (0.0-0.4); ALPHA-2-GLOBULIN 0.6 g/dL (0.4-1.0); BETA GLOBULIN 0.9 g/dL (0.7-1.3); GAMMA GLOBULIN 0.3 g/dL (0.4-1.8); M-SPIKE 0.1 g/dL (Not Observed)
[2022-06-24 16:06] VITALS: BP 98/50
[2022-06-24 16:52] LABS: EOSINOPHILS % (MANUAL) 1 % (0-8); LYMPHOCYTES % (MANUAL) 70 % (20-40); METAMYELOCYTES % 1 % (0-1); MONOCYTES % (MANUAL) 3 % (2-10); NEUTROPHILS % (MANUAL) 25 % (42-75)
[2022-06-24] MEDS ORDERED: diphenhydrAMINE 50 MG/1 ML VIAL IV ONE ×2 (17:30→23:00)
[2022-06-24] MEDS ORDERED: ACETAMINOPHEN 325 MG TABLET PO ONE (17:30)
[2022-06-24 20:10] VITALS: BP 99/50
[2022-06-24] MEDS: MIRTAZAPINE 15 MG TABLET PO SCH (21:40)
[2022-06-24 22:52] VITALS: BP 106/52
[2022-06-25 04:20] VITALS: BP 103/53
[2022-06-25] MEDS: PANTOPRAZOLE SODIUM 40 MG TABLET.DR PO SCH (06:38)
[2022-06-25 07:42] LABS: CARBON DIOXIDE 23 mmol/L (21-32); CHLORIDE 113 mmol/L (98-107); CREATININE 1.8 mg/dL (0.6-1.3); GLUCOSE 87 mg/dL (74-106); POTASSIUM 4.7 mmol/L (3.5-5.1); UREA NITROGEN, BLOOD 34 mg/dL (7-18)
[2022-06-25 07:55] LABS: HEMATOCRIT 21.1 % (31.2-41.9); MEAN CORPUSCULAR HEMOGLOBIN 30.7 uug (24.7-32.8); MEAN CORPUSCULAR VOLUME 94.7 fL (75.5-95.3)
[2022-06-25] MEDS: GLUCERNA SHAKE 237 ML CAN PO SCH ×2 (08:00→17:02)
[2022-06-25 08:53] LABS: PLATELET COUNT (AUTO) 37 K/uL (179-408)
[2022-06-25] MEDS: MULTIVIT, IRON, MIN NO. 8, FA TABLET PO SCH (09:16)
[2022-06-25] MEDS: CHOLECALCIFEROL 1,000 UNIT TABLET PO SCH (09:16)
[2022-06-25 11:45] VITALS: BP 110/46
[2022-06-25 15:50] VITALS: BP 140/52
[2022-06-25 16:58] LABS: LYMPHOCYTES % (MANUAL) 72 % (20-40); MONOCYTES % (MANUAL) 4 % (2-10); NEUTROPHILS % (MANUAL) 24 % (42-75)
[2022-06-25] MEDS: ACETAMINOPHEN 325 MG TABLET PO PRN (18:20)
[2022-06-25 20:00] VITALS: BP 98/66
[2022-06-25] MEDS: MIRTAZAPINE 15 MG TABLET PO SCH (21:00)
[2022-06-26 04:00] VITALS: BP 101/64
[2022-06-26] MEDS: PANTOPRAZOLE SODIUM 40 MG TABLET.DR PO SCH (07:12)
[2022-06-26 07:48] LABS: ALANINE AMINOTRANSFERASE 7 U/L (14-59); ALKALINE PHOSPHATASE 58 U/L (50-136); ASPARTATE AMINOTRANSFERASE 18 U/L (15-37); BILIRUBIN,TOTAL 0.3 mg/dL (0.2-1.0); CARBON DIOXIDE 23 mmol/L (21-32); CHLORIDE 113 mmol/L (98-107); CREATININE 1.9 mg/dL (0.6-1.3); GLUCOSE 104 mg/dL (74-106); MAGNESIUM 1.9 mg/dL (1.8-2.4); PHOSPHOROUS 3.3 mg/dL (2.5-4.9); POTASSIUM 4.5 mmol/L (3.5-5.1); TOTAL PROTEIN, SERUM 4.7 g/dL (6.4-8.2); UREA NITROGEN, BLOOD 31 mg/dL (7-18)
[2022-06-26 08:03] LABS: HEMATOCRIT 22.5 % (31.2-41.9); MEAN CORPUSCULAR HEMOGLOBIN 30.5 uug (24.7-32.8); MEAN CORPUSCULAR VOLUME 94.4 fL (75.5-95.3)
[2022-06-26 08:30] LABS: PLATELET COUNT (AUTO) 39 K/uL (179-408)
[2022-06-26] MEDS: CHOLECALCIFEROL 1,000 UNIT TABLET PO SCH (08:31)
[2022-06-26] MEDS: MULTIVIT, IRON, MIN NO. 8, FA TABLET PO SCH (08:31)
[2022-06-26] MEDS: GLUCERNA SHAKE 237 ML CAN PO SCH ×2 (08:34→17:03)
[2022-06-26] MEDS: ACETAMINOPHEN 325 MG TABLET PO PRN ×2 (10:22→20:03)
[2022-06-26 11:04] VITALS: BP 102/58
[2022-06-26 15:56] VITALS: BP 100/48
[2022-06-26] MEDS: GUAIFENESIN/DEXTROMETHORPHAN 5 ML UDC PO PRN ×2 (16:30→23:04)
[2022-06-26] MEDS: IV NS 1000 ML 1,000 ML IV PRN (18:58)
[2022-06-26] MEDS ORDERED: REMEDY ESSENTIAL ZINC PASTE 113 GM TOP PRN (19:15)
[2022-06-26] MEDS: REMEDY ESSENTIAL ZINC PASTE 113 GM TOP SCH (20:03)
[2022-06-26] MEDS: MIRTAZAPINE 15 MG TABLET PO SCH (20:03)
[2022-06-26 20:42] VITALS: BP 119/53
[2022-06-27] VITALS (7 sets, daily range): BP systolic 107–130; BP diastolic 48–64
[2022-06-27] MEDS: PANTOPRAZOLE SODIUM 40 MG TABLET.DR PO SCH (06:11)
[2022-06-27 07:09] LABS: HEMATOCRIT 23.7 % (31.2-41.9); MEAN CORPUSCULAR HEMOGLOBIN 30.7 uug (24.7-32.8); MEAN CORPUSCULAR VOLUME 96.8 fL (75.5-95.3)
[2022-06-27 07:22] LABS: CARBON DIOXIDE 21 mmol/L (21-32); CHLORIDE 113 mmol/L (98-107); CREATININE 1.9 mg/dL (0.6-1.3); GLUCOSE 94 mg/dL (74-106); MAGNESIUM 1.8 mg/dL (1.8-2.4); PHOSPHOROUS 3.3 mg/dL (2.5-4.9); POTASSIUM 4.9 mmol/L (3.5-5.1); UREA NITROGEN, BLOOD 34 mg/dL (7-18)
[2022-06-27 08:03] LABS: PLATELET COUNT (AUTO) 36 K/uL (179-408)
[2022-06-27] MEDS: CHOLECALCIFEROL 1,000 UNIT TABLET PO SCH (08:51)
[2022-06-27] MEDS: GLUCERNA SHAKE 237 ML CAN PO SCH ×2 (08:51→16:38)
[2022-06-27] MEDS: MULTIVIT, IRON, MIN NO. 8, FA TABLET PO SCH (08:51)
[2022-06-27] MEDS: REMEDY ESSENTIAL ZINC PASTE 113 GM TOP SCH ×2 (08:52→20:29)
[2022-06-27] MEDS: IV NS 1000 ML 1,000 ML IV PRN (13:26)
[2022-06-27] MEDS ORDERED: diphenhydrAMINE 50 MG/1 ML VIAL IV PRN (14:30)
[2022-06-27] MEDS ORDERED: ACETAMINOPHEN 325 MG TABLET PO PRN (14:30)
[2022-06-27] MEDS: ACETAMINOPHEN 325 MG TABLET PO PRN (16:37)
[2022-06-27] MEDS: GUAIFENESIN/DEXTROMETHORPHAN 5 ML UDC PO PRN (16:38)
[2022-06-27] MEDS: MIRTAZAPINE 15 MG TABLET PO SCH (20:29)
[2022-06-27 20:38] LABS: BASOPHILS % (MANUAL) 0 % (0-2); EOSINOPHILS % (MANUAL) 1 % (0-8); LYMPHOCYTES % (MANUAL) 70 % (20-40); MONOCYTES % (MANUAL) 4 % (2-10); NEUTROPHILS % (MANUAL) 25 % (42-75)
[2022-06-27] MEDS ORDERED: MORPHINE SULFATE 2 MG/1 ML DISP.SYRIN IV PRN (23:15)
[2022-06-27] MEDS ORDERED: FUROSEMIDE 20 MG TABLET PO ONE (23:15)
[2022-06-27] MEDS ORDERED: FUROSEMIDE 20 MG/2 ML VIAL IV ONE (23:45)
[2022-06-28] VITALS (8 sets, daily range): BP systolic 95–129; BP diastolic 48–77
[2022-06-28] MEDS: IV NS 1000 ML 1,000 ML IV PRN (03:42)
[2022-06-28] MEDS: PANTOPRAZOLE SODIUM 40 MG TABLET.DR PO SCH (06:18)
[2022-06-28 07:14] LABS: MEAN CORPUSCULAR HEMOGLOBIN 31.2 uug (24.7-32.8); MEAN CORPUSCULAR VOLUME 94.7 fL (75.5-95.3); PLATELET COUNT (AUTO) 57 K/uL (179-408)
[2022-06-28 07:31] LABS: ALANINE AMINOTRANSFERASE 10 U/L (14-59); ALKALINE PHOSPHATASE 59 U/L (50-136); ASPARTATE AMINOTRANSFERASE 20 U/L (15-37); BILIRUBIN,TOTAL 0.4 mg/dL (0.2-1.0); CARBON DIOXIDE 23 mmol/L (21-32); CHLORIDE 112 mmol/L (98-107); CREATININE 1.9 mg/dL (0.6-1.3); GLUCOSE 103 mg/dL (74-106); MAGNESIUM 1.8 mg/dL (1.8-2.4); PHOSPHOROUS 4.2 mg/dL (2.5-4.9); POTASSIUM 4.6 mmol/L (3.5-5.1); TOTAL PROTEIN, SERUM 4.7 g/dL (6.4-8.2); UREA NITROGEN, BLOOD 35 mg/dL (7-18)
[2022-06-28] MEDS: GLUCERNA SHAKE 237 ML CAN PO SCH ×2 (08:00→16:48)
[2022-06-28 08:04] LABS: HEMATOCRIT 19.8 % (31.2-41.9)
[2022-06-28 08:05] LABS: NEUTROPHILS % (MANUAL) 0 % (42-75)
[2022-06-28] MEDS: MULTIVIT, IRON, MIN NO. 8, FA TABLET PO SCH (09:21)
[2022-06-28] MEDS: REMEDY ESSENTIAL ZINC PASTE 113 GM TOP SCH ×2 (09:21→20:20)
[2022-06-28] MEDS: CHOLECALCIFEROL 1,000 UNIT TABLET PO SCH (09:21)
[2022-06-28 10:23] LABS: *URINE TOTAL PROTEIN RANDOM 55.4 mg/dL (<150/24HR)
[2022-06-28] MEDS ORDERED: ACETAMINOPHEN 325 MG TABLET PO PRN (10:30)
[2022-06-28] MEDS ORDERED: diphenhydrAMINE 50 MG/1 ML VIAL IV PRN (10:30)
[2022-06-28 16:06] LABS: BETA-2 MICROGLOBULIN, SERUM 16.9 mg/L (0.6-2.4)
[2022-06-28] MEDS: MIRTAZAPINE 15 MG TABLET PO SCH (20:19)
[2022-06-29 04:29] VITALS: BP 108/50
[2022-06-29] MEDS: PANTOPRAZOLE SODIUM 40 MG TABLET.DR PO SCH (06:21)
[2022-06-29] MEDS: GUAIFENESIN/DEXTROMETHORPHAN 5 ML UDC PO PRN (06:22)
[2022-06-29 07:31] LABS: ALKALINE PHOSPHATASE 63 U/L (50-136); ASPARTATE AMINOTRANSFERASE 15 U/L (15-37); BILIRUBIN,TOTAL 0.3 mg/dL (0.2-1.0); CARBON DIOXIDE 21 mmol/L (21-32); CHLORIDE 113 mmol/L (98-107); CREATININE 1.8 mg/dL (0.6-1.3); GLUCOSE 105 mg/dL (74-106); PHOSPHOROUS 4.6 mg/dL (2.5-4.9); POTASSIUM 4.5 mmol/L (3.5-5.1); UREA NITROGEN, BLOOD 36 mg/dL (7-18)
[2022-06-29 07:47] LABS: ALANINE AMINOTRANSFERASE 6 U/L (14-59)
[2022-06-29 07:51] LABS: HEMATOCRIT 25.1 % (31.2-41.9); MEAN CORPUSCULAR HEMOGLOBIN 31.1 uug (24.7-32.8); MEAN CORPUSCULAR VOLUME 95.6 fL (75.5-95.3)
[2022-06-29 07:56] LABS: PLATELET COUNT (AUTO) 49 K/uL (179-408)
[2022-06-29] MEDS: GLUCERNA SHAKE 237 ML CAN PO SCH (08:00)
[2022-06-29 08:30] VITALS: BP 117/45
[2022-06-29] MEDS: MULTIVIT, IRON, MIN NO. 8, FA TABLET PO SCH (09:00)
[2022-06-29] MEDS: CHOLECALCIFEROL 1,000 UNIT TABLET PO SCH (09:00)
[2022-06-29] MEDS: REMEDY ESSENTIAL ZINC PASTE 113 GM TOP SCH (09:45)
[2022-06-29] MEDS: IV NS 1000 ML 1,000 ML IV PRN ×2 (09:45)
[2022-06-29 10:55] VITALS: BP 118/58
[2022-06-29 11:13] VITALS: BP 137/42
[2022-06-29 15:07] VITALS: BP 142/39
[2022-06-30 20:41] LABS: BAND % (MANUAL) 1 % (0-10); EOSINOPHILS % (MANUAL) 1 % (0-8); LYMPHOCYTES % (MANUAL) 52 % (20-40); MONOCYTES % (MANUAL) 2 % (2-10); NEUTROPHILS % (MANUAL) 43 % (42-75)
== END 2022-06-29 15:45 | DRG 840 ==
LOC: ER 11:20 → TELE3 13:55 → MEDSURG3 06-22 13:17
PROVIDERS: ADMIT Internal Medicine; ATTEND Internal Medicine
PROC: 30233N1 Transfusion of Nonautologous Red Blood Cells into Peripheral Vein, Percutaneous Approach (ICD-10-PCS; principal; 2022-06-21)
PROC: 0W9G3ZX Drainage of Peritoneal Cavity, Percutaneous Approach, Diagnostic (ICD-10-PCS; 2022-06-23)
PROC: 30233R1 Transfusion of Nonautologous Platelets into Peripheral Vein, Percutaneous Approach (ICD-10-PCS; 2022-06-23)
PROC: 30233M1 Transfusion of Nonautologous Plasma Cryoprecipitate into Peripheral Vein, Percutaneous Approach (ICD-10-PCS; 2022-06-24)
DX: C85.93 Non-Hodgkin lymphoma, unspecified, intra-abdominal lymph nodes (principal); E43 Unspecified severe protein-calorie malnutrition; N17.0 Acute kidney failure with tubular necrosis; K57.91 Diverticulosis of intestine, part unspecified, without perforation or abscess with bleeding; R18.8 Other ascites; C91.10 Chronic lymphocytic leukemia of B-cell type not having achieved remission; N13.1 Hydronephrosis with ureteral stricture, not elsewhere classified; J90 Pleural effusion, not elsewhere classified; D61.818 Other pancytopenia; C79.89 Secondary malignant neoplasm of other specified sites; J98.11 Atelectasis; M80.88XA Other osteoporosis with current pathological fracture, vertebra(e), initial encounter for fracture; K76.6 Portal hypertension; G93.40 Encephalopathy, unspecified; Z20.822 Contact with and (suspected) exposure to COVID-19; I12.9 Hypertensive chronic kidney disease with stage 1 through stage 4 chronic kidney disease, or unspecified chronic kidney disease; N18.9 Chronic kidney disease, unspecified; Z59.01 Sheltered homelessness; R91.8 Other nonspecific abnormal finding of lung field; K74.60 Unspecified cirrhosis of liver; D47.2 Monoclonal gammopathy; Z92.21 Personal history of antineoplastic chemotherapy; I51.89 Other ill-defined heart diseases; F32.A Depression, unspecified; R16.1 Splenomegaly, not elsewhere classified; K57.90 Diverticulosis of intestine, part unspecified, without perforation or abscess without bleeding; E78.5 Hyperlipidemia, unspecified; D50.0 Iron deficiency anemia secondary to blood loss (chronic); Z53.29 Procedure and treatment not carried out because of patient's decision for other reasons; I70.0 Atherosclerosis of aorta; D73.89 Other diseases of spleen; K64.9 Unspecified hemorrhoids; Z87.442 Personal history of urinary calculi; Z88.1 Allergy status to other antibiotic agents; Z90.710 Acquired absence of both cervix and uterus
CPT/HCPCS: 36415; 70030-TC; 71045; 71250; 82105; 82378; 82746; 82784; 83010; 83550; 83615; 83690; 83735; 83970; 84100; 84155; 84156; 84165; 84300; 84443; 84484; 85018; 85025; 85610; 85730; 86038; 86301; 86334; 86430; 86706; 86803; 86850; 86880; 86900; 86901; 86920; 87340; 88185; 93307; A4663; A6209; A6213; C1758; G0378; J1200; J1940; J2270; J2405; J7040; P9012; P9016; P9035